=== PATIENT | female | born 1950 | race Caucasian/White ===

== ENCOUNTER 2016-08-29 11:46 | Emergency (ER) | payer MEDICARE ==
[~2016-08-29] VITALS: Ht 170.2 cm; Wt 90.0 kg
[2016-08-29 11:50] VITALS: BP 157/93; PULSE 85; RESP 17; TEMP 98.7; O2SAT 98
[2016-08-29 12:00] VITALS: BP 173/88; PULSE 70; RESP 16; O2SAT 97
[2016-08-29] MEDS ORDERED: SODIUM CHLORIDE 0.9% FLUSH 5 ML FLUSH IVF PRN (12:15)
[2016-08-29] MEDS ORDERED: LORazepam 2 MG/ML VIAL IV PUSH ONE (12:15)
[2016-08-29 12:37] VITALS: RESP 16; O2SAT 98
[2016-08-29 12:41] LABS: AUTOMATED NEUTROPHIL # 5.9 TH/MM3 (1.8-7.7); BASOPHIL # 0.1 TH/MM3 (0-0.2); BASOPHIL % 0.8 % (0.0-2.0); EOSINOPHIL # 0.2 TH/MM3 (0-0.4); EOSINOPHIL % 2.2 % (0.0-4.0); HEMATOCRIT 42.4 % (35.0-46.0); HEMO FLAGS DIFF FINAL; LYMPH % 14.1 % (9.0-44.0); LYMPHOCYTE # 1.1 TH/MM3 (1.0-4.8); MEAN CELL VOLUME 94.5 FL (80.0-100.0); MEAN CORPUSCULAR HEMOGLOBIN 31.8 PG (27.0-34.0); MEAN CORPUSCULAR HGB CONC 33.7 % (32.0-36.0); MONO % 6.3 % (0.0-8.0); NEUT % 76.6 % (16.0-70.0); PLATELET COUNT 317 TH/MM3 (150-450); RED BLOOD COUNT 4.49 MIL/MM3 (4.00-5.30); RED CELL DISTRIBUTION WIDTH 12.2 % (11.6-17.2); WHITE BLOOD COUNT 7.8 TH/MM3 (4.0-11.0)
--- NOTE | 2016-08-29 12:43 | RADHPO ---
EXAM DATE/TIME: 08/29/2016 12:21 [facility] COMPARISON: No previous studies available for comparison. INDICATIONS : Short of breath MEDICAL HISTORY : Hypercholesterolemia. Hypertension Angina. SURGICAL HISTORY : Mastectomy, left. thyroidectomy ENCOUNTER: Initial ACUITY: 2 days PAIN SCORE: 2/10 LOCATION: Bilateral chest FINDINGS: A single view of the chest demonstrates the lungs to be symmetrically aerated without evidence of mas s, infiltrate or effusion. The cardiomediastinal contours are unremarkable. Osseous structures are intact. CONCLUSION: No acute disease. Sundar Blount MD on August 29, 2016 at 12:41 Board Certified Radiologist. This report was verified electronically.
[2016-08-29] MEDS ORDERED: LISI10TA3 PO (12:49)
[2016-08-29] MEDS ORDERED: OMEP40CA2 PO (12:49)
[2016-08-29] MEDS ORDERED: FURO20TA PO (12:49)
[2016-08-29] MEDS ORDERED: PRAV40TA PO (12:49)
[2016-08-29] MEDS ORDERED: LEVO150T52 PO (12:49)
[2016-08-29] MEDS ORDERED: ASPI81CH CHEW (12:49)
[2016-08-29] MEDS ORDERED: FIBE0.523 PO (12:49)
[2016-08-29] MEDS ORDERED: DILT120T PO (12:49)
[2016-08-29 12:52] LABS: CHLORIDE 109 MEQ/L (98-107); POTASSIUM 3.7 MEQ/L (3.5-5.1); SODIUM (NA) 145 MEQ/L (136-145)
[2016-08-29 12:56] LABS: ANION GAP 10 MEQ/L (5-15); BICARBONATE 26.4 MEQ/L (21.0-32.0); BLOOD UREA NITROGEN 12 MG/DL (7-18)
[2016-08-29 12:59] LABS: ALT (GPT) 27 U/L (10-53); AST (GOT) 16 U/L (15-37); GLOMERULAR FILTRATION RATE 88 ML/MIN (>89)
--- NOTE | 2016-08-29 12:59 | PD ---
HPI . Shortness of breath Chief Complaint: Respiratory Symptoms Time Seen by Provider: 11:58 Travel History International Travel<30 days: No Contact w/Intl Traveler<30days: No Traveled to known affect area: No History of Present Illness HPI Patient presents with shortness of breath for the last week. She states it is associated with indigestion and back pain. She states that she takes Lasix as needed and thinks that she has probably taken it 3 times this past week. She denies cough or fever. PFSH Past Medical History Cardiovascular Problems: Yes (ANGINA, MVP, CORONARY ARTERY SPASMS) High Cholesterol: Yes Chemotherapy: No Hypertension: Yes Medical other: Yes (HEMOCHROMOTOSIS) Thyroid Disease: Yes Tetanus Vaccination: Unknown Influenza Vaccination: Yes Past Surgical History Hysterectomy: Yes Mastectomy: Yes Other Surgery: Yes (THYROIDECTOMY) Social History Alcohol Use: Yes (WINE DAILY) Tobacco Use: No Substance Use: No Allergies-Medications (Allergen,Severity, Reaction): Coded Allergies: Compazine (Verified Allergy, Severe, Anaphylaxis, 08/29/16) Reported Meds & Prescriptions Reported Meds & Active Scripts Active Reported Fiber (Psyllium) 520 Mg Cap Unknown Dose PO DAILY Pravachol (Pravastatin) 40 Mg Tab 40 Mg PO DAILY Omeprazole 40 Mg Cap 40 Mg PO BID Aspirin 81 Mg Chew 81 Mg CHEW DAILY Diltiazem (Diltiazem HCl) 120 Mg Tab 240 Mg PO DAILY Lisinopril 10 Mg Tab 10 Mg PO BID Levoxyl (Levothyroxine Sodium) 150 Mcg Tab 150 Mcg PO DAILY Furosemide 20 Mg Tab 20 Mg PO DAILY Review of Systems Except as stated in HPI: all other systems reviewed are Neg General / Constitutional: No: Fever, Chills Cardiovascular: No: Chest Pain or Discomfort Respiratory: Positive: Shortness of Breath Gastrointestinal: No: Nausea, Vomiting, Diarrhea Physical Exam Narrative GENERAL: The patient is lying comfortably on the stretcher and does not appear to be in any respiratory distress. SKIN: Warm and dry. HEAD: Atraumatic. Normocephalic. EYES: Pupils equal and round. ENT: No nasal bleeding or discharge. Mucous membranes pink and moist. NECK: Trachea midline. Neck is supple. CARDIOVASCULAR: Regular rate and rhythm. Heart sounds are normal. RESPIRATORY: No accessory muscle use. Lungs are clear with full air movement throughout. Initial room air sats were 100%. GASTROINTESTINAL: Abdomen soft, non-tender, nondistended. MUSCULOSKELETAL: No obvious deformities. No edema. NEUROLOGICAL: Awake and alert. No obvious cranial nerve deficits. Motor grossly within normal limits. Normal speech. PSYCHIATRIC: Appropriate mood and affect; insight and judgment normal. Data Data Last Documented VS Vital Signs Date Time Temp Pulse Resp B/P Pulse Ox O2 Delivery O2 Flow Rate FiO2 08/29/16 12:37 16 98 Room Air 08/29/16 11:50 98.7 85 157/93 Orders Complete Blood Count With Diff (08/29/16 12:01) Comprehensive Metabolic Panel (08/29/16 12:01) B-Type Natriuretic Peptide (08/29/16 12:01) D-Dimer (08/29/16 12:01) Ckmb (Isoenzyme) Profile (08/29/16 12:01) Troponin I (08/29/16 12:01) Iv Access Insert/Monitor (08/29/16 12:01) Ecg Monitoring (08/29/16 12:01) Oximetry (08/29/16 12:01) Oxygen Administration (08/29/16 12:01) Chest, Single Ap (08/29/16 12:01) Sodium Chloride 0.9% Flush (Ns Flush) (08/29/16 12:15) Lorazepam Inj (Ativan Inj) (08/29/16 12:15) Ct Pulmonary Angiogram (08/29/16 13:13) Iohexol 350 Inj (Omnipaque 350 Inj) (08/29/16 14:07) Labs Laboratory Tests Test 08/29/16 12:30 White Blood Count 7.8 TH/MM3 Red Blood Count 4.49 MIL/MM3 Hemoglobin 14.3 GM/DL Hematocrit 42.4 % Mean Corpuscular Volume 94.5 FL Mean Corpuscular Hemoglobin 31.8 PG Mean Corpuscular Hemoglobin 33.7 % Concent Red Cell Distribution Width 12.2 % Platelet Count 317 TH/MM3 Mean Platelet Volume 8.1 FL Neutrophils (%) (Auto) 76.6 % Lymphocytes (%) (Auto) 14.1 % Monocytes (%) (Auto) 6.3 % Eosinophils (%) (Auto) 2.2 % Basophils (%) (Auto) 0.8 % Neutrophils # (Auto) 5.9 TH/MM3 Lymphocytes # (Auto) 1.1 TH/MM3 Monocytes # (Auto) 0.5 TH/MM3 Eosinophils # (Auto) 0.2 TH/MM3 Basophils # (Auto) 0.1 TH/MM3 CBC Comment DIFF FINAL Differential Comment D-Dimer Quantitative (PE/DVT) 3.17 MG/L FEU Sodium Level 145 MEQ/L Potassium Level 3.7 MEQ/L Chloride Level 109 MEQ/L Carbon Dioxide Level 26.4 MEQ/L Anion Gap 10 MEQ/L Blood Urea Nitrogen 12 MG/DL Creatinine 0.67 MG/DL Estimat Glomerular Filtration 88 ML/MIN Rate Random Glucose 110 MG/DL Calcium Level 9.2 MG/DL Total Bilirubin 0.3 MG/DL Aspartate Amino Transf 16 U/L (AST/SGOT) Alanine Aminotransferase 27 U/L (ALT/SGPT) Alkaline Phosphatase 92 U/L Total Creatine Kinase 80 U/L Troponin I LESS THAN 0.02 NG/ML B-Type Natriuretic Peptide 22 PG/ML Total Protein 7.8 GM/DL Albumin 3.7 GM/DL MDM Medical Decision Making Medical Screen Exam Complete: Yes Emergency Medical Condition: Yes Interpretation(s) EKG shows a sinus rhythm with left ventricular hypertrophy. No ST segment elevation or depression. Differential Diagnosis Differential diagnosis of dyspnea includes but is not limited to congestive heart failure, pneumonia, wheezing, pneumothorax, pulmonary embolism Narrative Course Patient presents for the evaluation of dyspnea for the last week. Last Impressions Chest X-Ray 08/29/16 1201 Signed Impressions: Service Date/Time: Monday, August 29, 2016 12:21 - CONCLUSION: No acute disease. Sundar Blount MD Chest x-ray was independently viewed by me. CBC & BMP Diagram 08/29/16 12:30 Cardiac enzymes are negative. BNP is normal. D-dimer is 3.17. CT for PE has subsequently been ordered. CT for PE is negative for pulmonary embolism. Atelectasis noted on the CT. Otherwise CT is negative. Diagnosis Primary Impression: Dyspnea Qualified Code: R06.00 - Dyspnea, unspecified type Patient Instructions: Dyspnea (GEN), General Instructions Disposition: 01 DISCHARGE HOME Condition: Stable Sweta Jacobs MD Aug 29, 2016 12:58
[2016-08-29 13:00] LABS: TOTAL BILIRUBIN ADULT 0.3 MG/DL (0.2-1.0)
[2016-08-29 13:02] LABS: ALKALINE PHOSPHATASE 92 U/L (45-117)
[2016-08-29 13:11] LABS: CREATINE KINASE 80 U/L (26-192)
[2016-08-29 13:25] VITALS: BP 150/70; PULSE 76; RESP 16; O2SAT 95
[2016-08-29] MEDS ORDERED: IOHEXOL 350 MG/ML 10 ML VIAL (for RAD DIAG) IV ONE (14:07)
--- NOTE | 2016-08-29 14:19 | RADHPO ---
EXAM DATE/TIME: 08/29/2016 13:55 [facility] COMPARISON: CHEST SINGLE AP, August 29, 2016, 12:21. INDICATIONS : Short of breath. IV CONTRAST: 65 cc Omnipaque 350 (iohexol) IV RADIATION DOSE: 16.37 CTDIvol (mGy) MEDICAL HISTORY : Hypertension. Hypercholesterolemia. Carcinoma, breast. SURGICAL HISTORY : Hysterectomy. Thyroidectomy.Mastectomy, left. ENCOUNTER: Initial ACUITY: 1 week PAIN SCALE: 0/10 LOCATION: chest TECHNIQUE: Volumetric scanning of the chest was performed using a pulmonary embolism protocol MIP images were re constructed. Using automated exposure control and adjustment of the mA and/or kV according to patien t size, radiation dose was kept as low as reasonably achievable to obtain optimal diagnostic quality images. FINDINGS: PULMONARY ARTERIES: No filling defects are seen in the pulmonary arteries through the segmental level. LUNGS: Mild streaky basilar parenchymal opacity likely atelectasis. PLEURAE: There is no pleural thickening or pleural effusion. MEDIASTINUM: There is good visualization of the great vessels of the middle mediastinum. No evidence of mediastin al or hilar adenopathy/mass. MUSCULOSKELETAL: Within normal limits for patient age. MISCELLANEOUS: Liver cysts. CONCLUSION: No evidence of pulmonary embolism Yobany Roy MD on August 29, 2016 at 14:12 Board Certified Radiologist. This report was verified electronically.
[2016-08-29 14:50] VITALS: BP 119/61
--- NOTE | 2016-08-29 21:37 | EKG ---
Date Performed: 08/29/2016 Time Performed: 11:59:30 PTAGE: 66 years EKG: Sinus rhythm Leftward axis Left ventricular hypertrophy by voltage only Abnormal ECG NO PREVIOUS TRACING DOCTOR: Naveen Ramirez Interpretating Date/Time 08/29/2016 21:35:46
== END 2016-08-29 15:00 | disposition home or self-care (01) ==
LOC: PHED 11:46
DX: R06.00 Dyspnea, unspecified (principal); I51.7 Cardiomegaly; I20.9 Angina pectoris, unspecified; I10 Essential (primary) hypertension; E78.00 Pure hypercholesterolemia, unspecified; E07.9 Disorder of thyroid, unspecified; I34.1 Nonrheumatic mitral (valve) prolapse
CPT/HCPCS: 71010; 71275; 80053; 82550; 83880; 84484; 85025; 85379; 93005; 96374; 99285; J2060; Q9967